=== PATIENT | female | born 1945 | race Caucasian/White ===

== ENCOUNTER 2018-06-26 05:26 | Inpatient (IN) | payer MEDICARE, BC ==
[2018-06-26] MEDS: Dextrose 5%-Lactated Ringers 1,000 ML IV SCH ×2 (05:53→10:21)
[2018-06-26] MEDS ORDERED: Albuterol/Ipratropium 3.0-0.5 MG/3 ML Neb Soln NEB ONE (07:00)
[2018-06-26] MEDS ORDERED: Midazolam 1 MG/ML 2 ML SDV ONE (07:13)
[2018-06-26] MEDS ORDERED: Propofol 200 MG/20 ML SDV ONE ×2 (07:13→07:34)
[2018-06-26] MEDS ORDERED: fentaNYL 100 MCG/2 ML SDV ONE (07:13)
[2018-06-26] MEDS ORDERED: Naloxone 0.4 MG/ML SDV IV PRN (08:26)
[2018-06-26] MEDS ORDERED: Ondansetron 4 MG/2 ML SDV IVPUSH PRN (08:31)
[2018-06-26] MEDS ORDERED: Nitroglycerin 0.4 MG Tab.SL SL PRN (08:34)
[2018-06-26] MEDS ORDERED: ALPRAZolam 0.25 MG Tab PO PRN (08:34)
[2018-06-26] MEDS: Tiotropium Inhaler 18 MCG Inhalation Powder Cap Kit of 5 INH SCH (10:22)
[2018-06-26] MEDS ORDERED: Albuterol/Ipratropium 3.0-0.5 MG/3 ML Neb Soln INH SCH (11:00)
[2018-06-26] MEDS ORDERED: Levothyroxine 50 MCG Tab PO SCH (11:30)
[2018-06-26] MEDS: Albuterol/Ipratropium 3.0-0.5 MG/3 ML Neb Soln INH PRN (12:40)
[2018-06-26] MEDS: HYDROmorphone 2 MG Tab PO PRN ×3 (14:47→23:18)
[2018-06-26] MEDS ORDERED: MVI, Adult with Vitamin K 10 ML in Dextrose 5%-Lactated Ringers 1,000 ML IV SCH ×2 (16:00)
[2018-06-26] MEDS ORDERED: Lidocaine 1% 50 ML MDV INJECT SCH (20:14)
[2018-06-26] MEDS: Magnesium Sulfate/Water 2 GM in Premix Bag 1 BAG IV SCH (20:20)
[2018-06-26] MEDS: Potassium Chloride 20 MEQ in Premix Bag 1 BAG IV SCH ×2 (20:31→22:51)
[2018-06-27] MEDS: Potassium Chloride 20 MEQ in Premix Bag 1 BAG IV SCH (00:54)
[2018-06-27] MEDS: Dextrose 5%-Lactated Ringers 1,000 ML IV SCH ×3 (01:52→23:20)
[2018-06-27] MEDS: Magnesium Sulfate/Water 2 GM in Premix Bag 1 BAG IV SCH ×2 (03:38→13:36)
[2018-06-27] MEDS: HYDROmorphone 2 MG Tab PO PRN (03:45)
[2018-06-27] MEDS: Albuterol/Ipratropium 3.0-0.5 MG/3 ML Neb Soln INH PRN (06:57)
[2018-06-27] MEDS ORDERED: Ertapenem 1 GM in Sodium Chloride 0.9% 100 ML IV ONE ×2 (07:00→07:30)
[2018-06-27] MEDS ORDERED: fentaNYL 250 MCG/5 ML SDV ONE ×2 (07:04→07:43)
[2018-06-27] MEDS ORDERED: Neostigmine Methylsulfate 1 MG/ML 5 ML Syringe ONE (07:04)
[2018-06-27] MEDS ORDERED: Succinylcholine 200 MG/10 ML MDV ONE (07:04)
[2018-06-27] MEDS ORDERED: Glycopyrrolate 0.2 MG/ML 5 ML MDV ONE (07:04)
[2018-06-27] MEDS ORDERED: Ondansetron 4 MG/2 ML SDV ONE (07:04)
[2018-06-27] MEDS ORDERED: Rocuronium 50 MG/5 ML Vial ONE (07:04)
[2018-06-27] MEDS ORDERED: Propofol 200 MG/20 ML SDV ONE (07:04)
[2018-06-27] MEDS ORDERED: Dexamethasone 4 MG/ML SDV ONE (07:04)
[2018-06-27] MEDS: Tiotropium Inhaler 18 MCG Inhalation Powder Cap Kit of 5 INH SCH (07:19)
[2018-06-27] MEDS ORDERED: Ropivacaine 27 ML, Dexamethasone 8 MG, EPINEPHrine 0.4 MG, Sodium Chloride 0.9% 50.6 ML NERVRT SCH ×4 (07:30)
[2018-06-27] MEDS ORDERED: Lactated Ringers 1,000 ML ONE (07:47)
[2018-06-27] MEDS ORDERED: Sodium Chloride 0.9% 10 ML ONE (08:23)
[2018-06-27] MEDS ORDERED: Meropenem 500 MG SDV ONE (08:23)
[2018-06-27] MEDS ORDERED: Bupivacaine 0.5%/EPINEPHrine 1:200,000 50 ML MDV ONE (08:27)
[2018-06-27] MEDS ORDERED: Losartan 50 MG Tab PO SCH (09:00)
[2018-06-27] MEDS: HYDROmorphone/Normal Saline 15 MG/30 ML PCA IV PRN (09:13)
[2018-06-27] MEDS ORDERED: diphenhydrAMINE 50 MG/ML SDV IVPUSH PRN (10:36)
[2018-06-27] MEDS ORDERED: Labetalol 20 MG/4 ML Syringe IVPUSH PRN (10:36)
[2018-06-27] MEDS ORDERED: Metoclopramide 10 MG/2 ML SDV IVPUSH PRN (10:36)
[2018-06-27] MEDS ORDERED: hydrOXYzine HCl 100 MG/2 ML SDV IM PRN (10:36)
[2018-06-27] MEDS: Albuterol/Ipratropium 3.0-0.5 MG/3 ML Neb Soln INH SCH ×3 (10:39→20:58)
--- NOTE | 2018-06-27 15:18 | OR ---
DATE OF PROCEDURE: 06/26/2018 PREOPERATIVE DIAGNOSES: 1. Postprandial nausea, abdominal cramping, and significant unintended weight loss. 2. History of colon polyps. POSTOPERATIVE DIAGNOSES: 1. Upper gastrointestinal endoscopy showing: a. Thickened and edematous Jennifer limb mucosa suggestive of a partial small bowel obstruction as suggested on CT scan. b. Foreign body (suture) at gastrojejunostomy. 2. Single polyp (2 mm) in the splenic flexure of colon. OPERATIVE PROCEDURES: 1. Esophagogastroduodenoscopy with: a. Biopsies of the gastric pouch for CLOtest (85760). b. Removal of foreign body (sutures) at gastrojejunostomy (94907). 2. Flexible colonoscopy with polypectomy by snare technique. ANESTHESIA: IV sedation. INDICATION FOR PROCEDURE: This is a 72-year-old presenting with a quite severe problem of postprandial crampy abdominal pain and unintended weight loss, which was around 40 pounds over the last 4 months. This was associated with some intermittent nausea and vomiting as well. CT scan was obtained, which did show thickening of the small bowel as well as the bypassed portion of the stomach. I suspect this is related to partial small-bowel obstruction. The patient was not read as having an overt obstruction but, to my read, does have quite a bit of edema and hang up of dye in the area of the jejunojejunostomy, suggestive of partial small-bowel obstruction at that level. Clinically, the history is highly suggestive of partial small-bowel obstruction as well. Plan is to proceed with upper GI endoscopy with biopsies as indicated and also to proceed with a flexible colonoscopy with polypectomy as indicated. Potential risks, including bleeding and perforation, were discussed, and the patient wishes to proceed. DESCRIPTION OF PROCEDURE: The patient was taken to the operating room and placed in a left lateral decubitus position. IV sedation was administered, after which the upper GI endoscope was passed orally through the length of the esophagus and into the gastric pouch and from there roughly 20 cm into the Jennifer limb. Findings included normal hypopharynx, larynx, upper esophageal sphincter, and esophageal body. At the EG junction, there was a suture present. This was associated with some mild redness around it, but otherwise was probably not causing much in the way of overt problem. There were no erosions or ulcers in that area. There was, however, marked redness and edema in the Jennifer limb diffusely, which I suspect may be related to some partial small-bowel obstruction. Biopsies were obtained from the gastric pouch for CLOtest for H. pylori and the suture then retrieved by means of the biopsy forceps, pulling that through the wall of the gastrojejunostomy and removing it. Minimal bleeding from the biopsy and suture removal sites was seen. The scope was then withdrawn. Attention was then taken to the colonoscopy. Initial digital rectal exam was performed and was unremarkable. Colonoscope was passed into the rectum with retroflexion revealing uncomplicated hemorrhoidal columns. The scope was then eventually passed to the level of the cecum. The prep at that point was quite good with only a small amount of liquid stool present. To that level, a single polyp was present in the splenic flexure. This was quite small and it measured only about 2 mm. This was then encircled at its base with a snare and cauterized. As this was suctioned through, it must have fragmented, as no tissue could be retrieved. This was so small, it was very unlikely to be malignant, however. The cauterized base was nicely hemostatic, the scope was withdrawn, and no additional abnormalities were noted. The patient was taken to the recovery room in satisfactory condition. At this point, I think we will admit the patient for some hydration and plan to proceed with a laparotomy tomorrow. She was also noted on CT scan to have some gallbladder sludge and small stones, which might be contributing to her symptoms as well. Plan will be to proceed with exploratory laparotomy and try to identify if there is a partial small-bowel obstruction, possible revision of the jejunojejunostomy, which is likely the point that is causing the problem, as well as cholecystectomy. This will be scheduled for tomorrow. Potential risks of the procedure were reviewed with the patient, and she wishes to proceed. Ivan Hunter MD /[id number]
[2018-06-27] MEDS ORDERED: Pantoprazole 40 MG Vial IVPUSH SCH (16:00)
[2018-06-27] MEDS ORDERED: MVI, Adult with Vitamin K 10 ML, Thiamine 200 MG, Chromium/Copper/Mang/Selen/Zn 1 ML in... IV SCH ×4 (16:00)
[2018-06-27] MEDS: Heparin Sodium 5,000 Units/ML Vial SUBCUT SCH (20:54)
[2018-06-27] MEDS: traZODone 50 MG Tab PO SCH (20:54)
[2018-06-28] MEDS: HYDROmorphone/Normal Saline 15 MG/30 ML PCA IV PRN ×2 (03:34→19:21)
[2018-06-28] MEDS ORDERED: Iohexol 647 MG/ML 50 ML SDV IVPUSH PRN (04:42)
[2018-06-28] MEDS: Dextrose 5%-Lactated Ringers 1,000 ML IV SCH (05:41)
[2018-06-28] MEDS: Albuterol/Ipratropium 3.0-0.5 MG/3 ML Neb Soln INH SCH ×4 (07:35→20:51)
[2018-06-28] MEDS: Tiotropium Inhaler 18 MCG Inhalation Powder Cap Kit of 5 INH SCH (07:35)
[2018-06-28] MEDS: Heparin Sodium 5,000 Units/ML Vial SUBCUT SCH ×2 (08:11→20:51)
[2018-06-28] MEDS ORDERED: Nitroglycerin 0.4 MG Tab.SL SL PRN (08:12)
[2018-06-28] MEDS ORDERED: Dextrose 5%-Lactated Ringers 1,000 ML IV SCH (08:15)
[2018-06-28] MEDS: SCOPOLAMINE PATCH CHECK TOP SCH (08:16)
[2018-06-28] MEDS: Aspirin 81 MG Tab.EC PO SCH (09:57)
[2018-06-28] MEDS: Losartan 50 MG Tab PO SCH (09:57)
[2018-06-28] MEDS ORDERED: Ertapenem 1 GM in Sodium Chloride 0.9% 100 ML IV SCH (10:00)
[2018-06-28] MEDS: Furosemide 20 MG Tab PO SCH (10:01)
[2018-06-28] MEDS: Meropenem 500 MG in Sodium Chloride 0.9% 50 ML IV SCH ×3 (10:04→21:00)
[2018-06-28] MEDS ORDERED: MVI, Adult with Vitamin K 10 ML, Thiamine 200 MG, Chromium/Copper/Mang/Selen/Zn 1 ML in... IV SCH ×4 (16:00)
[2018-06-28] MEDS: Pantoprazole 40 MG Delayed-Release Granules 1 Packet PO SCH (17:01)
[2018-06-28] MEDS: traZODone 50 MG Tab PO SCH (20:52)
[2018-06-29] MEDS: Meropenem 500 MG in Sodium Chloride 0.9% 50 ML IV SCH (03:57)
[2018-06-29] MEDS: Tiotropium Inhaler 18 MCG Inhalation Powder Cap Kit of 5 INH SCH (07:23)
[2018-06-29] MEDS: Albuterol/Ipratropium 3.0-0.5 MG/3 ML Neb Soln INH SCH ×4 (07:23→20:41)
[2018-06-29] MEDS: HYDROmorphone 2 MG Tab PO PRN ×4 (08:00→20:55)
[2018-06-29] MEDS ORDERED: Tamsulosin 0.4 MG Cap.ER PO ONE (08:13)
[2018-06-29] MEDS ORDERED: Cyanocobalamin (Vitamin B12) 1,000 MCG/ML SDV IM ONE (09:00)
[2018-06-29] MEDS: Losartan 50 MG Tab PO SCH (09:40)
[2018-06-29] MEDS: Aspirin 81 MG Tab.EC PO SCH (09:41)
[2018-06-29] MEDS: Furosemide 20 MG Tab PO SCH (09:41)
[2018-06-29] MEDS: SCOPOLAMINE PATCH CHECK TOP SCH (09:45)
[2018-06-29] MEDS: Pantoprazole 40 MG Delayed-Release Granules 1 Packet PO SCH (16:00)
[2018-06-29] MEDS: traZODone 50 MG Tab PO SCH (20:41)
[2018-06-29] MEDS ORDERED: Tamsulosin 0.4 MG Cap.ER PO SCH (21:00)
[2018-06-30] MEDS: HYDROmorphone 2 MG Tab PO PRN ×3 (03:43→12:07)
[2018-06-30] MEDS: Tiotropium Inhaler 18 MCG Inhalation Powder Cap Kit of 5 INH SCH (07:53)
[2018-06-30] MEDS: Furosemide 20 MG Tab PO SCH (08:16)
[2018-06-30] MEDS: Aspirin 81 MG Tab.EC PO SCH (08:17)
[2018-06-30] MEDS: Losartan 50 MG Tab PO SCH (08:17)
[2018-06-30] MEDS: Albuterol/Ipratropium 3.0-0.5 MG/3 ML Neb Soln INH SCH ×2 (08:21→10:49)
--- NOTE | 2018-06-30 12:24 | CRLCR ---
INDICATION: Evaluate Jennifer-en-Y gastric bypass. COMPARISON: None available. FINDINGS: Two AP supine views of the abdomen are obtained after the ingestion of 50 cc of Omnipaque 300. The initial view was obtained immediately after contrast administration and the 2nd films obtained after a 15 minutes delay. There is prompt passage of the swallowed contrast from the small gastric pouch into the nondilated proximal small bowel. There is no sign of any extravasation of contrast. There is a line of surgical skin adrian from the inferior abdomen into the upper pelvis. In the abdomen, there is no sign of distention of the small bowel or colon to suggest obstruction or ileus. There is no sign of free air or distinct mass. The osseous structures are normal in appearance for the patient`s age. The lung bases are clear. IMPRESSION: Prompt passage of swallowed oral contrast from the small gastric pouch into the nondilated proximal small bowel. No sign of extravasation of contrast. Dictated by Genaro Zepeda MD @ Jun 30 2018 12:21PM Signed by Dr. Genaro Zepeda @ Jun 30 2018 12:24PM
--- NOTE | 2018-06-30 14:00 | DISCH ---
ADMISSION DIAGNOSES: 1. Weight loss, nonintentional. 2. Generalized abdominal pain. 3. Status post Jennifer-en-Y gastric bypass surgery for postoperative malnutrition. 4. Vitamin D deficiency. 5. Vitamin B deficiency. 6. Coronary artery disease. 7. Impaired fasting glucose. 8. Major depression disorder. 9. Chronic obstructive pulmonary disease. 10.Nocturnal hypoxia. 11.Hyperlipidemia. 12.Hypertension. 13.Obstructive sleep apnea. 14.Hypothyroidism. 15.Tobacco use disorder. 16.Panic disorder without agoraphobia. 17.Generalized osteoarthritis and spondylosis of unspecific site. 18.Stress incontinence. DISCHARGE DIAGNOSES: Exploratory laparotomy with: A. Revision of the jejunostomy component of the Jennifer-en-Y gastric bypass surgery. B. Small-bowel resection. C. Small bowel stricture. D. Cholecystectomy. E. Resection of peritoneal nodule for partial small-bowel obstruction at the G-J jejunostomy junction, separate area of small bowel adhesion requiring resection, separate small-bowel stricture, chronic cholecystitis and cholelithiasis, peritoneal nodule at the junction of mesentery, and mid small bowel distal peritoneal nodule. Date of surgery was 06/27/2018. Surgeon was Ivan Hunter MD. HISTORY: Tanja Ellis has had a significant weight loss associated with postprandial abdominal pain. After preoperative evaluation and discussion of possible risks and possible complications, she wished to proceed with surgical procedure. HOSPITAL COURSE: Tanja had her surgery on 06/27/2018 and she had no operative complications. On postoperative day #1, she was started on a step-2 gastric bypass diet and her home medication. On postoperative day #2, she was advanced to a step-3 gastric bypass diet and changed to oral pain medications. She was unable to void after her Rivera catheter was taken out, so it was put back in. On 06/29/2018, she was started on Flomax and it was removed early a.m. of 06/30/2018. She was bladder scanned twice. With the first void, she had 329 and on the second void, she had 100. On 06/30/2018, pain was controlled and activity was good. She was voiding with the medication of Flomax. O2 saturations remain to be 93% to 94% on 2 L of nasal cannula oxygen. She will be going home with home O2, and she has had this in the past. Pain is well managed, activity was good with oxygen, tolerating a step-3 gastric bypass diet, and was able to be discharged to home. PHYSICAL EXAMINATION: GENERAL: Tanja is a 72-year-old female. VITAL SIGNS: Height is 4 feet 11 inches and weight is 118 pounds. Temperature of 98.5, pulse of 77, respiratory rate of 18, and blood pressure of 134/70. HEENT: Negative. NECK: Supple. HEART: Regular rate and rhythm. PULMONARY: Lungs are clear. ABDOMEN: [place] are intact. Abdominal binder is on. EXTREMITIES: Without peripheral edema. DISPOSITION: Discharged to home. CONDITION: Stable and improving. FOLLOWUP APPOINTMENT: With Yady Cortez PA-C, on 07/07/2018 at 12 p.m. HOME MEDICATIONS: 1. Dilaudid 4 mg oral q.4 hours p.r.n. pain, #40. 2. Flomax 0.4 mg at bedtime, #30. 3. She is to resume her home medication of Xanax 0.25 mg oral three times a day p.r.n. anxiety. 4. ProAir inhaler two inhalations every 4 hours p.r.n. shortness of breath. 5. DuoNeb 3 mL p.r.n. q.4 to 6 hours. 6. Aspirin 81 mg oral daily. 7. Calcium/magnesium caplet one daily. 8. Vitamin B12, 1000 mcg IM monthly and B12 sublingual 12 mcg daily. 9. Breo Ellipta one inhalation daily. 10.Furosemide 20 mg oral daily. 11.Losartan/Cozaar 25 mg oral daily. 12.Multivitamin two tablets oral daily. 13.Nitroglycerin 0.4 sublingual p.r.n. chest pain. 14.Zofran ODT 4 mg every six hours p.r.n. nausea. 15.Protonix 40 mg oral daily. 16.Sennosides/docusate one each oral daily. 17.Spiriva 1 capsule oral daily inhalation. 18.Vitamin B complex 1 daily. 19.Trintellix 10 mg oral daily. DISCHARGE DIET: Diet after discharge was step-3 gastric bypass diet until next appointment. Drink 8 to 10 glasses of water a day. ACTIVITY: No lifting over 10 pounds for six weeks. Other activity, walk inside your home 6 times daily. Driving: Do not drive for 2 weeks and while on pain medication. Shower/bathing, may shower. DISCHARGE INSTRUCTIONS: Notify provider if any fever, increased pain, swelling, redness, drainage, nausea, or vomiting. Keep site clean and dry. Wear abdominal binder for 6 weeks, and then as tolerated. Use incentive spirometer 10 times every hour while awake.
--- NOTE | 2018-06-30 14:55 | OR ---
DATE OF PROCEDURE: 06/27/2018 PREOPERATIVE DIAGNOSES: 1. Partial small bowel obstruction. 2. Chronic cholecystitis and cholelithiasis. POSTOPERATIVE DIAGNOSES: 1. Partial small bowel obstruction at jejunojejunostomy. 2. Separate area of small bowel adhesion requiring resection. 3. Separate area of small bowel stricturing. 4. Chronic cholecystitis and cholelithiasis. 5. Peritoneal nodule overlying at the junction of the mesentery and the small bowel at the level of the mid section of the Jennifer limb. OPERATIVE PROCEDURES: Exploratory laparotomy with: 1. Revision of jejunojejunostomy component of Jennifer-en-Y gastric bypass (87840). 2. Separate small bowel resection (54434). 3. Small bowel stricturoplasty (41387). 4. Cholecystectomy (39142). 5. Resection of peritoneal nodule overlying the midportion of the small bowel Jennifer limb (48467). ANESTHESIA: General. SURGEON: Ivan Hunter MD CONDUIT WORKER: HELENA Canchola. INDICATION FOR PROCEDURE: The patient presents with symptoms highly suggestive of partial small bowel obstruction with significant unintended weight loss due to ongoing nausea and vomiting and postprandial abdominal pain. She was also noted, on preoperative imaging, to have cholelithiasis, and the plan will be to proceed with exploratory laparotomy with lysis of adhesions and small bowel resection as indicated, as well as an empiric cholecystectomy, as the cholelithiasis may be contributing to the patient's symptoms as well. Potential risks of procedure including bleeding, infection, injury to underlying viscera, problems with stone migrating in the common bile duct requiring additional procedures for correction, as well as possible persistence of the symptoms postoperatively were all gone over, and the patient wishes to proceed. DETAILS OF PROCEDURE: The patient was taken to the operating room after general endotracheal anesthesia was induced. A Rivera catheter was inserted, and the abdomen was prepped and draped. A midline incision was then made from the umbilicus to roughly 3 fingerbreadths below the xiphoid and carried down through the full-thickness of abdominal wall. Upon entering the peritoneal cavity, general exploration was undertaken. The patient was noted to have quite a bit in the way of adhesions between the area of the jejunojejunostomy as well as somewhat distal to that after lysis of adhesions it became evident there was some mild narrowing of the point where the Jennifer limb entered the jejunojejunostomy. This was also an area where there was somewhat deserosalized in the mid Jennifer limb and as well as an area of the stricturing related to chronic adhesion formation in the small bowel roughly 40 cm distal to the present jejunojejunostomy. One additional finding was that of a peritoneal nodule. This would appear to be a fatty or lipoma solid lesion located in the junction of the mesentery of the small bowel wall more or less at the mid level of present Jennifer limb. This area was then resected with a EFFIE stapler and sent as separate specimen and this lesion measured roughly 1.5 cm in size. At this point, the small bowel was detached at the point where the jejunojejunostomy entered the Jennifer limb. This was secured with the EFFIE stapler and secondary anastomosis was then constructed revising the jejunojejunostomy at a point roughly 20 cm distal to the original anastomosis. This was accomplished with internal firing of the Endo-EFFIE 60 mm stapler, common opening was then closed transversely with the same stapler and angles anastomosed and mesenteric defect was approximated with some 0 Ethibond stitch, along with fibrin sealant. Additional insufflation was made and Jennifer limb was then resected with the bowel being divided proximally and distally with EFFIE staplers, as was the underlying mesentry. Side-to- side enteroenterostomy was also accomplished with Endo-EFFIE 60 mm stapler, and the common opening was closed with a purple load. Angles were anastomosed and reinforced with some 3-0 Vicryl stitch. No mesenteric defect was present in this location. Similarly, in the area distal to the present jejunojejunostomy, the area of stricturing was addressed with the bowel being flipped over on itself and small enterotomy being placed and internal firing of the 60 mm stapler was accomplished and common opening closed transversely with the EFFIE stapler as well. Similarly, the angles of anastomosis were reinforced with some 3-0 Vicryl stitch, and again in this case no mesenteric defect was present. Attention was taken to the cholecystectomy. The gallbladder had palpable stones within it, all of which appeared to be fairly small in the range of 3 to 4 mm in size. As the gallbladder was retracted superiorly, the peritoneal reflection of the cystic duct triangle was incised, and the cystic artery and cystic duct were both well identified and then divided jointly with a EFFIE 80 stapler. The remaining attachments of the gallbladder and the liver were taken down with electrocautery and the gallbladder was delivered from the field. At this point, no further problems were noted, and the abdomen was irrigated with meropenem- containing saline solution. The omentum came down underneath the incision satisfactorily and the midline fascia was approximated with a #2 Vicryl stitch. The subcu tissue was closed with 2 layers with 3-0 and 4-0 Vicryl stitch deep and the skin with adrian. Dressing was applied. The patient was taken to the recovery room in satisfactory condition. There were no evidence of complications. Ivan Hunter MD /[id number]
--- NOTE | 2018-06-30 14:55 | PN ---
DATE OF SERVICE: 06/29/2018 The patient has been afebrile with stable vital signs. Oral intake has been fairly good. We will switch over to oral pain medication and give her some bowel stimulation, and if she is able to have step-3 diet, she may be ready for discharge home tomorrow. Ivan Hunter MD /[id number]
--- NOTE | 2018-06-30 15:02 | PN ---
DATE OF SERVICE: 06/28/2018 The patient has been afebrile with stable vital signs. No major problems have been noted overnight. Her oral intake is reasonably well with step 1 diet and not having the nausea she had previously. Upper GI x-ray looks good. We will restart her pertinent oral medications, then go to a full liquid diet with the [employer]GER [employer] ongoing for today and probably switching her over to oral pain medication tomorrow. Ivan Hunter MD /[id number]
--- NOTE | 2018-06-30 15:20 | LETTER ---
06/30/2018 RE: HANSEL RODRIGUEZ : 1945 To whom it may concern: A [id number] conversation in regard to home oxygen therapy completed with the patient. The patient qualifies for home oxygen therapy. O2 saturation 88% on room air at rest. She will be going home with 2 L of oxygen per nasal cannula at all times. /[id number]
== END 2018-06-30 15:20 | disposition home or self-care (01) | DRG 330 ==
LOC: JP.SDSSCHI 05:26 → JP.SDS 05:26 → EDSTATUS 07:30 → JP.MS 07:55 → JP.SDSSCHI 11:00
PROVIDERS: ADMIT Surgery; ATTEND Surgery
PROC: 0DB68ZX Excision of Stomach, Via Natural or Artificial Opening Endoscopic, Diagnostic (ICD-10-PCS; principal; 2018-06-26)
PROC: 0DC48ZZ Extirpation of Matter from Esophagogastric Junction, Via Natural or Artificial Opening Endoscopic (ICD-10-PCS; 2018-06-26)
PROC: 0DBL8ZX Excision of Transverse Colon, Via Natural or Artificial Opening Endoscopic, Diagnostic (ICD-10-PCS; 2018-06-26)
PROC: 0DBA0ZZ Excision of Jejunum, Open Approach (ICD-10-PCS; 2018-06-27)
PROC: 0FT40ZZ Resection of Gallbladder, Open Approach (ICD-10-PCS; 2018-06-27)
PROC: 0DBW0ZX Excision of Peritoneum, Open Approach, Diagnostic (ICD-10-PCS; 2018-06-27)
PROC: 0DQA0ZZ Repair Jejunum, Open Approach (ICD-10-PCS; 2018-06-27)
DX: K56.51 Intestinal adhesions [bands], with partial obstruction (principal); K80.10 Calculus of gallbladder with chronic cholecystitis without obstruction; K91.2 Postsurgical malabsorption, not elsewhere classified; K56.609 Unspecified intestinal obstruction, unspecified as to partial versus complete obstruction; K66.8 Other specified disorders of peritoneum; R63.4 Abnormal weight loss; R10.84 Generalized abdominal pain; I10 Essential (primary) hypertension; J44.9 Chronic obstructive pulmonary disease, unspecified; Z99.81 Dependence on supplemental oxygen; F17.210 Nicotine dependence, cigarettes, uncomplicated; G47.33 Obstructive sleep apnea (adult) (pediatric); E03.9 Hypothyroidism, unspecified; I25.10 Atherosclerotic heart disease of native coronary artery without angina pectoris; I25.2 Old myocardial infarction; Z98.84 Bariatric surgery status; Z98.0 Intestinal bypass and anastomosis status; Z95.5 Presence of coronary angioplasty implant and graft; M54.9 Dorsalgia, unspecified; G89.29 Other chronic pain; E55.9 Vitamin D deficiency, unspecified; E53.9 Vitamin B deficiency, unspecified; R73.02 Impaired glucose tolerance (oral); F32.9 Major depressive disorder, single episode, unspecified; R09.02 Hypoxemia; E78.5 Hyperlipidemia, unspecified; F41.0 Panic disorder [episodic paroxysmal anxiety]; M19.90 Unspecified osteoarthritis, unspecified site; M47.9 Spondylosis, unspecified; N39.3 Stress incontinence (female) (male); K63.5 Polyp of colon
CPT/HCPCS: 36415; 51701; 51798; 74240; 80053; 82728; 83735; 84100; 84443; 85027; 87081; 88304; 88305; 88307; 93005; 94640; 94762; A9270-GY; C9113; J0171; J0330; J1100; J1170; J1335; J1644; J2001; J2185; J2250; J2405; J2704; J2710; J2795; J3010; J3411; J3420; J3475; J3480; J3490; J7030; J7042; J7050; J7120; J7620-GY; Q9967

== ENCOUNTER 2019-01-13 12:35 | Inpatient (IN) | payer MEDICARE, BC ==
[2019-01-13] MEDS ORDERED: Dextrose 5%-Lactated Ringers 1,000 ML IV SCH (13:30)
[2019-01-13] MEDS ORDERED: Scopolamine 1.5 MG Transdermal Patch TOP SCH (14:00)
[2019-01-13] MEDS ORDERED: fentaNYL 250 MCG/5 ML SDV ONE ×2 (14:28→15:44)
[2019-01-13] MEDS ORDERED: Glycopyrrolate 0.2 MG/ML 5 ML MDV ONE (14:29)
[2019-01-13] MEDS ORDERED: Neostigmine Methylsulfate 1 MG/ML 5 ML Syringe ONE (14:29)
[2019-01-13] MEDS ORDERED: Dexamethasone 4 MG/ML SDV ONE (14:29)
[2019-01-13] MEDS ORDERED: Ondansetron 4 MG/2 ML SDV ONE (14:29)
[2019-01-13] MEDS ORDERED: Succinylcholine 200 MG/10 ML MDV ONE (14:29)
[2019-01-13] MEDS ORDERED: Rocuronium 50 MG/5 ML Vial ONE (14:29)
[2019-01-13] MEDS ORDERED: Propofol 200 MG/20 ML SDV ONE (14:29)
[2019-01-13] MEDS ORDERED: Albuterol/Ipratropium 3.0-0.5 MG/3 ML Neb Soln NEB ONE (14:30)
[2019-01-13] MEDS ORDERED: Lidocaine 2% 100 MG/5 ML Syringe IVPUSH SCH (15:00)
[2019-01-13] MEDS ORDERED: Ketamine 500 MG/5 ML MDV IV SCH (15:00)
[2019-01-13] MEDS ORDERED: Ketamine 50 MG in Sodium Chloride 0.9% 49.5 ML IV SCH (15:00)
[2019-01-13] MEDS ORDERED: Levofloxacin/Dextrose 5%-Water 500 MG in Premix Bag 1 BAG IV ONE (15:00)
[2019-01-13] MEDS ORDERED: Meropenem 500 MG SDV ONE (15:02)
[2019-01-13] MEDS ORDERED: Bupivacaine 0.5% 50 ML MDV ONE (15:58)
[2019-01-13] MEDS ORDERED: Lidocaine 1% with EPINEPHrine 1:100,000 50 ML MDV ONE (15:58)
[2019-01-13] MEDS ORDERED: Lactated Ringers 1,000 ML ONE (16:23)
[2019-01-13] MEDS ORDERED: hydrOXYzine HCl 100 MG/2 ML SDV IM PRN (17:32)
[2019-01-13] MEDS ORDERED: diphenhydrAMINE 50 MG/ML SDV IVPUSH PRN (17:32)
[2019-01-13] MEDS ORDERED: HYDROmorphone 0.5 MG/0.5 ML Syringe IVPUSH PRN (17:32)
[2019-01-13] MEDS ORDERED: Metoclopramide 10 MG/2 ML SDV IVPUSH PRN (17:32)
[2019-01-13] MEDS ORDERED: Labetalol 20 MG/4 ML Syringe IVPUSH PRN (17:32)
[2019-01-13] MEDS ORDERED: Albuterol/Ipratropium 3.0-0.5 MG/3 ML Neb Soln INH PRN (17:32)
[2019-01-13] MEDS ORDERED: Nitroglycerin 0.4 MG Tab.SL SL PRN (17:37)
[2019-01-13] MEDS ORDERED: ALPRAZolam 0.25 MG Tab PO PRN (17:39)
[2019-01-13] MEDS: MVI, Adult with Vitamin K 10 ML, Thiamine 200 MG, Chromium/Copper/Mang/Selen/Zn 1 ML in... IV SCH ×4 (17:46)
[2019-01-13] MEDS: Lidocaine 0.4%/D5W 2 GM/500 ML BAG IV SCH (17:47)
[2019-01-13] MEDS ORDERED: Pantoprazole 40 MG Vial IVPUSH SCH (18:00)
[2019-01-13] MEDS: HYDROmorphone 1 MG/ML Syringe IV PRN ×2 (18:24→20:36)
[2019-01-13] MEDS: Ondansetron 4 MG/2 ML SDV IVPUSH PRN (18:31)
[2019-01-13] MEDS: Tamsulosin 0.4 MG Cap.ER PO SCH (20:31)
[2019-01-13] MEDS: Heparin Sodium 5,000 Units/ML Vial SUBCUT SCH (20:31)
[2019-01-13] MEDS: traZODone 50 MG Tab PO SCH (20:32)
[2019-01-13] MEDS: Albuterol/Ipratropium 3.0-0.5 MG/3 ML Neb Soln INH SCH (20:32)
[2019-01-13] MEDS: Glycopyrrolate 15.6 MCG Cap.W.Dev Kit of 6 IH SCH (20:32)
[2019-01-13] MEDS: Fluticasone-Salmeterol 113-14 MCG Powder Inhalant INH SCH (20:32)
[2019-01-14] MEDS: Dextrose 5%-Lactated Ringers 1,000 ML IV SCH ×2 (00:40→07:28)
[2019-01-14] MEDS ORDERED: Iopamidol 612 MG/ML 50 ML SDV PO STA (04:08)
--- NOTE | 2019-01-14 05:55 | CRLCR ---
Indication: Status post Jennifer-en-Y, evaluate for leak Technique: Abdomen modified upper GI Comparison: None Findings: Transit of oral contrast through the gastric pouch into distal jejunum. No definitive evidence for leakage. Impression: No definitive evidence for oral contrast leakage. Dictated by Stanley Beltran MD @ 01/14/2019 5:52:37 AM Dictated by: Stanley Beltran MD @ 01/14/2019 05:52:49 (Electronically Signed)
[2019-01-14] MEDS: Fluticasone-Salmeterol 113-14 MCG Powder Inhalant INH SCH ×2 (07:24→20:04)
[2019-01-14] MEDS: Albuterol/Ipratropium 3.0-0.5 MG/3 ML Neb Soln INH SCH ×4 (07:24→20:02)
[2019-01-14] MEDS: HYDROmorphone 1 MG/ML Syringe IV PRN (07:34)
[2019-01-14] MEDS: Ondansetron 4 MG/2 ML SDV IVPUSH PRN (07:45)
[2019-01-14] MEDS ORDERED: Ondansetron 4 MG/2 ML SDV IVPUSH PRN (07:46)
[2019-01-14] MEDS ORDERED: diphenhydrAMINE 50 MG/ML SDV IVPUSH PRN (07:46)
[2019-01-14] MEDS ORDERED: Naloxone 0.4 MG/ML SDV IVPUSH PRN (07:46)
[2019-01-14] MEDS ORDERED: diphenhydrAMINE 25 MG Cap PO PRN (07:46)
[2019-01-14] MEDS ORDERED: HYDROmorphone/Normal Saline 15 MG/30 ML PCA IV SCH (08:00)
[2019-01-14] MEDS: Glycopyrrolate 15.6 MCG Cap.W.Dev Kit of 6 IH SCH ×2 (09:14→20:04)
--- NOTE | 2019-01-14 09:30 | PN ---
DATE OF SERVICE: 01/14/2019 SUBJECTIVE: Tanja is postoperative day 1. She states her pain is not controlled. She is normally on Dilaudid and has a tolerance built up for Dilaudid. She states vital signs have been stable. She has been up to ambulate twice. Oral intake 180. Urine output 855. She has no other concerns or questions. LABORATORY DATA: Potassium was 4.2 and magnesium 1.4. OBJECTIVE: GENERAL: Tanja is a pleasant 73-year-old female. She is alert and orientated. VITAL SIGNS: TPR 98.1, 56, 18. Blood pressure 133/71. HEENT: Negative. NECK: Supple. HEART: Regular rate and rhythm. LUNGS: Clear. ABDOMEN: Dressings dry and intact. Abdominal binder is on. EXTREMITIES: Without peripheral edema. ASSESSMENT: Exploratory laparotomy with lysis of adhesions. 1. Reduction of small bowel volvulus and closure of internal hernia. 2. Revision of the jejunojejunostomy component of the Jennifer-en-Y gastric bypass surgery. 3. Excision of elongated peritoneal mass. 4. Placement of Interceed mesh. 5. Repair of incarcerated incisional hernia. POSTOPERATIVE DIAGNOSES: Small bowel volvulus with stricture due to constricting peritoneal band at the Jennifer limb entering the jejunojejunostomy, elongated peritoneal mass, questionable necrotic omentum 8.5 cm, extensive intraabdominal adhesions, incarcerated incisional hernia. Date of surgery, 01/13/2019. Surgeon, Ivan Hunter MD. PLAN: 1. Step 2 with no cereal gastric bypass diet. 2. Discontinue Rivera catheter. 3. Change IV to D5 normal saline with 20 mEq of KCl to run at 100 mL/hour. 4. Check BMP in a.m. 5. Magnesium 2 g IV q.6 x72 hours. 6. Dilaudid TRIM SAWYER. 7. Good pulmonary toilet. 8. We will evaluate p.r.n. or in a.m. Yady Cortez PA-C /[id number]
[2019-01-14] MEDS: Magnesium Sulfate/Water 2 GM in Premix Bag 1 BAG IV SCH ×3 (09:31→21:11)
[2019-01-14] MEDS: Dextrose 5%-0.9% NaCl with KCl 1,000 ML IV SCH (09:32)
[2019-01-14] MEDS: Furosemide 20 MG Tab PO SCH (09:40)
[2019-01-14] MEDS: Aspirin 81 MG Tab.EC PO SCH (09:40)
[2019-01-14] MEDS: Losartan 25 MG Tab PO SCH (09:40)
[2019-01-14] MEDS: Heparin Sodium 5,000 Units/ML Vial SUBCUT SCH ×2 (09:40→20:07)
[2019-01-14] MEDS: SCOPOLAMINE PATCH CHECK TOP SCH (09:41)
[2019-01-14] MEDS: TRINTELLIX 10 MG PO SCH (09:41)
[2019-01-14] MEDS: Levofloxacin/Dextrose 5%-Water 500 MG in Premix Bag 1 BAG IV SCH (14:13)
[2019-01-14] MEDS: MVI, Adult with Vitamin K 10 ML, Thiamine 200 MG, Chromium/Copper/Mang/Selen/Zn 1 ML in... IV SCH ×4 (17:31)
[2019-01-14] MEDS: Pantoprazole 40 MG Tab.CR PO SCH (17:32)
[2019-01-14] MEDS: Lidocaine 0.4%/D5W 2 GM/500 ML BAG IV SCH (17:38)
[2019-01-14] MEDS: traZODone 50 MG Tab PO SCH (20:07)
[2019-01-14] MEDS: Tamsulosin 0.4 MG Cap.ER PO SCH (20:07)
[2019-01-15] MEDS: HYDROmorphone 1 MG/ML Syringe IV PRN (01:57)
[2019-01-15] MEDS: Magnesium Sulfate/Water 2 GM in Premix Bag 1 BAG IV SCH ×4 (04:07→21:41)
[2019-01-15] MEDS: Dextrose 5%-0.9% NaCl with KCl 1,000 ML IV SCH (05:24)
[2019-01-15] MEDS: Albuterol/Ipratropium 3.0-0.5 MG/3 ML Neb Soln INH SCH ×4 (07:20→21:40)
[2019-01-15] MEDS: Fluticasone-Salmeterol 113-14 MCG Powder Inhalant INH SCH ×3 (07:20→21:39)
[2019-01-15] MEDS: Glycopyrrolate 15.6 MCG Cap.W.Dev Kit of 6 IH SCH ×2 (07:20→21:40)
[2019-01-15] MEDS: Losartan 25 MG Tab PO SCH (08:51)
[2019-01-15] MEDS: Heparin Sodium 5,000 Units/ML Vial SUBCUT SCH ×2 (08:52→21:37)
[2019-01-15] MEDS: Aspirin 81 MG Tab.EC PO SCH (08:52)
[2019-01-15] MEDS: Furosemide 20 MG Tab PO SCH (08:53)
[2019-01-15] MEDS ORDERED: Cyanocobalamin (Vitamin B12) 1,000 MCG/ML SDV IM ONE (09:00)
[2019-01-15] MEDS: SCOPOLAMINE PATCH CHECK TOP SCH (09:23)
[2019-01-15] MEDS: TRINTELLIX 10 MG PO SCH (09:24)
[2019-01-15] MEDS: HYDROmorphone 2 MG Tab PO PRN ×4 (09:53→22:43)
--- NOTE | 2019-01-15 11:35 | PN ---
DATE OF SERVICE: 01/15/2019 SUBJECTIVE: Tanja reports that she would like to go to oral pain medication. She is passing flatus and vital signs have been stable. She is up ambulating. Oral intake 520 and urine output 2500. REVIEW OF SYSTEMS: Remainder of review of systems negative for any pertinent positives and negatives. OBJECTIVE: GENERAL: Tanja Ellis is a pleasant 73-year-old female, alert and orientated. VITAL SIGNS: TPR last charted was 0245; 95.6, 71, 18, blood pressure 111/66. HEENT: Negative. NECK: Supple. HEART: Regular rate and rhythm. LUNGS: Clear. ABDOMEN: Dressings dry and intact. Abdominal binder is on. EXTREMITIES: Without peripheral edema. ASSESSMENT: PLAN: 1. Discontinue VIDEO GAME DESIGNER. 2. Dilaudid 2 to 4 mg every 4 hours p.r.n. pain. 3. Continue bowel stimulation as before. 4. We will evaluate p.r.n. or in a.m. Yady Cortez PA-C /[id number]
[2019-01-15] MEDS: Levofloxacin/Dextrose 5%-Water 500 MG in Premix Bag 1 BAG IV SCH (13:50)
[2019-01-15] MEDS: Pantoprazole 40 MG Tab.CR PO SCH (16:05)
[2019-01-15] MEDS: MVI, Adult with Vitamin K 10 ML, Thiamine 200 MG, Chromium/Copper/Mang/Selen/Zn 1 ML in... IV SCH ×4 (16:05)
[2019-01-15] MEDS: Tamsulosin 0.4 MG Cap.ER PO SCH (21:37)
[2019-01-15] MEDS: traZODone 50 MG Tab PO SCH (21:39)
[2019-01-16] MEDS: Dextrose 5%-0.9% NaCl with KCl 1,000 ML IV SCH (02:12)
[2019-01-16] MEDS: HYDROmorphone 2 MG Tab PO PRN ×5 (03:08→20:48)
[2019-01-16] MEDS: Magnesium Sulfate/Water 2 GM in Premix Bag 1 BAG IV SCH ×2 (03:08→10:24)
[2019-01-16] MEDS: Albuterol/Ipratropium 3.0-0.5 MG/3 ML Neb Soln INH SCH ×4 (07:10→20:34)
[2019-01-16] MEDS: Glycopyrrolate 15.6 MCG Cap.W.Dev Kit of 6 IH SCH ×2 (07:11→20:37)
[2019-01-16] MEDS: Fluticasone-Salmeterol 113-14 MCG Powder Inhalant INH SCH ×2 (07:11→20:35)
[2019-01-16] MEDS ORDERED: Bisacodyl 5 MG Tab PO ONE (09:00)
[2019-01-16] MEDS: Losartan 25 MG Tab PO SCH (09:21)
[2019-01-16] MEDS: Aspirin 81 MG Tab.EC PO SCH (09:22)
[2019-01-16] MEDS: Furosemide 20 MG Tab PO SCH (09:22)
[2019-01-16] MEDS: Heparin Sodium 5,000 Units/ML Vial SUBCUT SCH ×2 (09:22→20:36)
[2019-01-16] MEDS: Polyethylene Glycol 3350 Powder 17 GM Packet PO SCH ×2 (09:23→20:35)
[2019-01-16] MEDS ORDERED: Sodium Chloride 0.9% 10 ML Syringe IV PRN (11:34)
[2019-01-16] MEDS: Levofloxacin/Dextrose 5%-Water 500 MG in Premix Bag 1 BAG IV SCH (14:40)
[2019-01-16] MEDS: Magnesium Oxide 400 MG Tab PO SCH ×2 (16:49→20:36)
[2019-01-16] MEDS: Pantoprazole 40 MG Tab.CR PO SCH (16:50)
[2019-01-16] MEDS: Tamsulosin 0.4 MG Cap.ER PO SCH (20:36)
[2019-01-16] MEDS: traZODone 50 MG Tab PO SCH (20:37)
[2019-01-17] MEDS: HYDROmorphone 2 MG Tab PO PRN ×3 (01:16→09:47)
[2019-01-17] MEDS: Fluticasone-Salmeterol 113-14 MCG Powder Inhalant INH SCH (07:23)
[2019-01-17] MEDS: Albuterol/Ipratropium 3.0-0.5 MG/3 ML Neb Soln INH SCH (07:23)
[2019-01-17] MEDS: Losartan 25 MG Tab PO SCH (09:14)
[2019-01-17] MEDS: Aspirin 81 MG Tab.EC PO SCH (09:15)
[2019-01-17] MEDS: Heparin Sodium 5,000 Units/ML Vial SUBCUT SCH (09:15)
[2019-01-17] MEDS: Furosemide 20 MG Tab PO SCH (09:15)
[2019-01-17] MEDS: Polyethylene Glycol 3350 Powder 17 GM Packet PO SCH (09:16)
[2019-01-17] MEDS: Glycopyrrolate 15.6 MCG Cap.W.Dev Kit of 6 IH SCH (09:16)
--- NOTE | 2019-01-19 07:48 | DISCH ---
FINAL DIAGNOSES: 1. Small bowel volvulus with stricture due to constricting peritoneal band at Jennifer limb entering jejunojejunostomy. 2. Elongated peritoneal mass (questionable necrotic omentum). 3. Extensive intraabdominal adhesions. 4. Incarcerated incisional hernia. 5. Postoperative urinary retention. 6. Hypomagnesemia. 7. Chronic obstructive pulmonary disease and obstructive sleep apnea. 8. History of coronary artery disease. OPERATIVE PROCEDURES: This was done on 01/13/19, exploratory laparotomy with lysis of adhesions and: 1. Reduction of small bowel volvulus and closure of internal hernia. 2. Revision of jejunojejunostomy component of Jennifer-en-Y gastric bypass. 3. Excision of elongated peritoneal mass. 4. Placement of Interceed mesh to reduce recurrent adhesion formation. 5. Repair of incarcerated incisional hernia. SUMMARY: This is a 73-year-old presenting with a small bowel obstruction. She presented to [facility] in [place]. Initially, we did not have a bed that night, and the next morning, she was able to be transferred. On the day of admission, the patient underwent an exploratory laparotomy with the above-noted findings and went under the described operative procedures. Postoperatively, the patient did have some urinary retention. She was also noted to have a quite low magnesium at 1.4, and that was supplemented. She was started on some Flomax and now has been able to void with the help of bladder catheter for 36 hours without difficulty. The patient will be discharged home on her usual medications. She is instructed that she can move her Dilaudid up to 2 to 4 mg q.4 hours p.r.n. while she is having the acute surgical pain and then try to get down to the 2 mg dose and stretch that out gradually to her usual baseline of 2 mg q.6 hours as tolerated. Given this, she may need some additional Dilaudid from her primary provider, Hiwot Cage PA-C, in [place]. We did not write any additional Dilaudid so as not to disrupt the pain contract. Otherwise, she will be sent home on magnesium oxide 400 mg daily, #90 refill x1 year, and given her low magnesium level, that probably is something that should be given long-term. She will be following up with Yady Cortez at [facility], on 01/26/2019 for postop check and staple removal. She has been instructed to stay on the step 3 diet for 2 weeks and then step 4 gastric bypass diet thereafter and avoid lifting more than 10 pounds for the next month.
--- NOTE | 2019-01-19 08:39 | OR ---
DATE OF PROCEDURE: 01/13/2019 SURGEON: Ivan Hunter MD PREOPERATIVE DIAGNOSIS: Small bowel obstruction. POSTOPERATIVE DIAGNOSES: 1. 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 2. Elongated peritoneal mass (questionable necrotic omentum). 3. Incarcerated incisional hernia. 4. Extensive intraabdominal adhesions. OPERATIVE PROCEDURES: Exploratory laparotomy with lysis of adhesions and: 1. Reduction of small bowel volvulus and closure of internal hernia (62303). 2. Revision of jejunojejunostomy component of Jennifer-en-Y gastric bypass (62245). 3. Excision of elongated peritoneal mass (8.5 cm) (74634). 4. Repair of incarcerated incisional hernia (23258). 5. Placement of Interceed mesh to reduce adhesion formation between the pelvic and abdominal best and underlying viscera (88939). ANESTHESIA: General. INDICATIONS FOR PROCEDURE: This is a 73-year-old status post previous Jennifer-en-Y gastric bypass, presenting with a small bowel obstruction in [place]. She was transferred earlier this morning for a definitive surgical treatment. Potential risks of the procedure including bleeding, infection, leaks from various GI tract closures, problems with further bowel obstruction over time, as well as the possibility of cardiopulmonary, septic, or hemorrhagic complications leading to were discussed, and the patient wishes to proceed. DETAILS OF PROCEDURE: The patient was taken to the operating room and after general endotracheal anesthesia was induced, a Rivera catheter was inserted, and the abdomen was prepped and draped. The previous upper midline incision was then reused and carried down through the full-thickness abdominal wall. At the lower end of the incision, the patient had an incisional hernia, which had some incarcerated omentum and preperitoneal fat within it. This was reduced and, at that point, fairly extensive adhesions between the anterior abdominal wall, small bowel and omentum were taken down. The patient was found to have a volvulus of the small bowel in a [id number] rotation of the jejunojejunostomy. As this was reduced, it was noted that the patient had an elongated peritoneal band, which may have been some necrotic omentum, which was measuring around 8.5 cm and it was densely adherent to the point of junction of the Jennifer limb as it entered the jejunojejunostomy. As this was excised, the patient was noted to have a persistent stricture at that level, and decision was made to proceed with revision of the jejunojejunostomy. The point where the small bowel entered the Jennifer limb was then divided with the EFFIE stapler and the underlying mesentery, for a few centimeters distal to that limb, was divided and some additional bowel resected to facilitate adequate mobility of the anastomosis. All of this done with EFFIE adrian. The revised anastomosis between the Jennifer limb and the bowel, now around 20 cm distal to the original jejunojejunostomy, was constructed with an internal firing of the Endo-EFFIE 60 mm stapler, followed by a 30-mm stapler. The common opening was then closed transversely using the same stapler. The angles of anastomosis were then reinforced with 3-0 Vicryl stitch. Mesenteric defect at this level, as well as under the point of original jejunojejunostomy, was then separately closed with running 2-0 silk stitch to provide some permanency to that closure. At this point, no further problems were noted. The abdomen was irrigated with antibiotic-containing saline solution. The patient was felt to be at high risk for development of new adhesions between the pelvic and abdominal wall, particularly underneath the incision and the underlying viscera. Given this, an Interceed mesh was placed in these areas. The midline fascia was then approximated with #2 Vicryl stitch. This included closure of the incisional hernia at the lower end of the incision. The subcutaneous tissue was approximated with a 3-0 Vicryl stitch deep and 4-0 Vicryl subdermal stitch, and then adrian for the skin. Dressing was applied. The patient was taken to the recovery room in satisfactory condition. There were no evident complications. Ivan Hunter MD /[id number]
== END 2019-01-17 10:00 | disposition home or self-care (01) | DRG 331 ==
LOC: JP.SDS 12:35 → JP.MS 16:45
PROVIDERS: ADMIT Surgery; ATTEND Surgery
PROC: 0DS80ZZ Reposition Small Intestine, Open Approach (ICD-10-PCS; principal; 2019-01-13)
PROC: 0DN80ZZ Release Small Intestine, Open Approach (ICD-10-PCS; 2019-01-13)
PROC: 0DBA0ZZ Excision of Jejunum, Open Approach (ICD-10-PCS; 2019-01-13)
PROC: 0DNU0ZZ Release Omentum, Open Approach (ICD-10-PCS; 2019-01-13)
PROC: 0DBW0ZZ Excision of Peritoneum, Open Approach (ICD-10-PCS; 2019-01-13)
PROC: 0WUF0JZ Supplement Abdominal Wall with Synthetic Substitute, Open Approach (ICD-10-PCS; 2019-01-13)
PROC: 3E02340 Introduction of Influenza Vaccine into Muscle, Percutaneous Approach (ICD-10-PCS; 2019-01-14)
DX: K56.2 Volvulus (principal); K56.50 Intestinal adhesions [bands], unspecified as to partial versus complete obstruction; K43.0 Incisional hernia with obstruction, without gangrene; R19.09 Other intra-abdominal and pelvic swelling, mass and lump; Z98.84 Bariatric surgery status; R33.9 Retention of urine, unspecified; E83.42 Hypomagnesemia; J44.9 Chronic obstructive pulmonary disease, unspecified; G47.33 Obstructive sleep apnea (adult) (pediatric); R53.82 Chronic fatigue, unspecified; I25.10 Atherosclerotic heart disease of native coronary artery without angina pectoris; Z72.0 Tobacco use; I10 Essential (primary) hypertension; E03.9 Hypothyroidism, unspecified; F32.9 Major depressive disorder, single episode, unspecified; F41.9 Anxiety disorder, unspecified; G62.9 Polyneuropathy, unspecified; F17.200 Nicotine dependence, unspecified, uncomplicated; Z90.49 Acquired absence of other specified parts of digestive tract; Z23 Encounter for immunization; Z79.899 Other long term (current) drug therapy; Z88.0 Allergy status to penicillin; Z88.5 Allergy status to narcotic agent; Z88.6 Allergy status to analgesic agent; Z91.013 Allergy to seafood; Z91.09 Other allergy status, other than to drugs and biological substances; Z79.82 Long term (current) use of aspirin
CPT/HCPCS: 43848; 44050; 44700; 49204; 49561; 88302; 88304; 88307; 94640; A9270; J0171; J0330; J1100 ×2; J1956; J2185; J2405; J2704; J2710; J2795; J3010 ×2; J3490 ×2; J7042; J7050; J7120; 36415; 74240; 80048; 80053; 83735; 83880; 84100; 85025; 90662; 94762; C9113; G0008; J1170; J1644; J2001; J3411; J3420; J3475; J3480; J7620-GY; Q9967